=== PATIENT | male | born 1980 | race Caucasian/White ===

== ENCOUNTER 2018-10-18 16:46 | Emergency (ER) | payer OTHER ==
[~2018-10-18] VITALS: Ht 185.4 cm; Wt 73.0 kg
--- NOTE | 2018-10-18 17:17 | NUR ---
ED Nurse Note: Pt came in from home for help with feeling bloating, pt has alcoholism problem, has been eating a lot of "comfort food". HR 111 upon arrival, other VSS. AOx4. Will cont to monitor.
--- NOTE | 2018-10-18 17:18 | NUR ---
ED Nurse Note: Pt admitted he had " a couple of drinks" before coming in the ER.
[2018-10-18] MEDS ORDERED: Isovue-300 100ml vial INJ PRN (17:45)
[2018-10-18 18:43] LABS: BASOPHILS % (AUTO) 1.2 % (0.0-2.0); EOSINOPHILS % (AUTO) 0.2 % (0.0-3.0); HEMATOCRIT 40.6 % (42.0-52.0); HEMOGLOBIN 13.6 G/DL (14.2-18.0); MEAN CORPUSCULAR VOLUME 103 FL (80-99); MONOCYTES % (AUTO) 3.6 % (1.0-10.0); NEUTROPHILS % (AUTO) 81.1 % (45.0-75.0); PLATELET COUNT 188 K/UL (150-450); RED BLOOD COUNT 3.94 M/UL (4.70-6.10); RED CELL DISTRIBUTION WIDTH 11.4 % (11.6-14.8); WHITE BLOOD COUNT 12.1 K/UL (4.8-10.8)
[2018-10-18 19:05] LABS: ANION GAP 9 mmol/L (5-15); BLOOD UREA NITROGEN 1 mg/dL (7-18); CALCIUM 8.5 MG/DL (8.5-10.1); CARBON DIOXIDE 30 MMOL/L (21-32); CHLORIDE 95 MMOL/L (98-107); CREATININE 0.8 MG/DL (0.55-1.30); POTASSIUM 3.9 MMOL/L (3.5-5.1); SODIUM 134 MMOL/L (136-145)
[2018-10-18 19:16] VITALS: BP 132/87
[2018-10-18 19:17] LABS: ALANINE AMINOTRANSFERASE 82 U/L (12-78); ALBUMIN 2.6 G/DL (3.4-5.0); ALBUMIN/GLOBULIN RATIO 0.7 (1.0-2.7); ALKALINE PHOSPHATASE 233 U/L (46-116); ASPARTATE AMINO TRANSFERASE 431 U/L (15-37); BILIRUBIN,TOTAL 3.1 MG/DL (0.2-1.0)
--- NOTE | 2018-10-18 19:17 | NUR ---
ED Nurse Note:pt. went to DT scan
[2018-10-18 19:18] LABS: BILIRUBIN,DIRECT 2.4 MG/DL (0.0-0.3)
[2018-10-18 20:10] LABS: APPEARANCE,URINE CLEAR; BILIRUBIN, URINE NEGATIVE (NEGATIVE); GLUCOSE, URINE (UA) NEGATIVE (NEGATIVE); KETONES,URINE 1+ (NEGATIVE); LEUKOCYTE ESTERASE ,URINE NEGATIVE (NEGATIVE); NITRITE,URINE NEGATIVE (NEGATIVE); PH,URINE 7 (4.5-8.0); PROTEIN,URINE NEGATIVE (NEGATIVE); UROBILINOGEN,URINE 1 MG/DL (0.0-1.0)
[2018-10-18 20:11] LABS: COLOR,URINE YELLOW
[2018-10-18] MEDS ORDERED: cefOXitin Sod 1 GM in D5W 55 ML IVPB ONE (21:30)
--- NOTE | 2018-10-18 21:45 | Emergency Room Report ---
History of Present Illness General Chief Complaint: Pain Source: Patient Present Illness HPI 38-year-old male patient presents ER complaining of abdominal discomfort and swelling for the past 2 weeks. Reports right upper and right lower quadrant pain during this time. Reports intermittent vomiting and diarrhea during this time. Denies hematemesis or blood in stool. Denies recent travel outside the country. Reports history of alcoholism, states that has been drinking for the past day, states last drink was at 3 PM earlier today. Reports history of delirium tremens when detoxing from alcohol use. Denies fever, chest pain, shortness of breath. Denies acute injury or trauma. Denies other aggravating or relieving factors. Reports last bowel movement earlier today, states normal. Reports able to pass flatus. Reports history of intermittent marijuana use, denies other drug use. Allergies: Coded Allergies: PENICILLINS (Verified Allergy, Unknown, 10/18/18) Patient History Past Medical History: see triage record Reviewed Nursing Documentation: PMH: Agreed; PSxH: Agreed Nursing Documentation-PMH Past Medical History: No History, Except For Review of Systems All Other Systems: negative except mentioned in HPI Physical Exam Vital Signs Date Time Temp Pulse Resp B/P (MAP) Pulse Ox O2 Delivery O2 Flow Rate FiO2 10/18/18 17:02 98.8 111 20 132/87 96 Room Air Sp02 EP Interpretation: reviewed, normal General Appearance: well appearing, no apparent distress, alert, GCS 15, non- toxic Head: normocephalic, atraumatic Eyes: bilateral eye normal inspection, bilateral eye PERRL, bilateral eye scleral icterus ENT: hearing grossly normal, normal pharynx, no angioedema, normal voice, uvula midline, moist mucus membranes Neck: full range of motion, no bony tend Respiratory: lungs clear, normal breath sounds, no rhonchi, no respiratory distress, no accessory muscle use, no wheezing, speaking full sentences Cardiovascular #1: regular rate, rhythm, no edema Gastrointestinal: soft, no mass, non-distended, no guarding, no rebound, distended, other - Negative Rovsing, negative obturator Musculoskeletal: back normal, digits/nails normal, gait/station normal, normal range of motion, non-tender Psychiatric: mood/affect normal Skin: no rash Medical Decision Making PA Attestation Dr. Buckley is my supervising Physician whom patient management has been discussed with. Diagnostic Impression: Primary Impression: Cholecystitis Additional Impressions: Ascites History of alcoholism ER Course Pt. presents to the ED c/o abdominal pain and vomiting. Ddx considered but are not limited to UTI, cholelithiasis, cholecystitis, pancreatitis, appendicitis, diverticulitis. Begin abdominal pain workup. Provided patient with pain medication. Vital signs: are WNL, pt. is afebrile ORDERS: CBC, CMP, Lipase, UA, CT abdomen pelvis, and medication. ER COURSE: CBC CMP Lipase UA Discuss results with patient CT abdomen and pelvis Abdominal US Patient reports relief of pain symptoms with medication. - Please note that this Emergency Department Report was dictated using [employer] specialist technology software, occasionally this can lead to erroneous entry secondary to interpretation by the dictation equipment. Labs Test 10/18/18 18:30 10/18/18 19:45 White Blood Count 12.1 K/UL (4.8-10.8) Red Blood Count 3.94 M/UL (4.70-6.10) Hemoglobin 13.6 G/DL (14.2-18.0) Hematocrit 40.6 % (42.0-52.0) Mean Corpuscular Volume 103 FL (80-99) Mean Corpuscular Hemoglobin 34.5 PG (27.0-31.0) Mean Corpuscular Hemoglobin Concent 33.5 G/DL (32.0-36.0) Red Cell Distribution Width 11.4 % (11.6-14.8) Platelet Count 188 K/UL (150-450) Mean Platelet Volume 8.6 FL (6.5-10.1) Neutrophils (%) (Auto) 81.1 % (45.0-75.0) Lymphocytes (%) (Auto) 14.0 % (20.0-45.0) Monocytes (%) (Auto) 3.6 % (1.0-10.0) Eosinophils (%) (Auto) 0.2 % (0.0-3.0) Basophils (%) (Auto) 1.2 % (0.0-2.0) Prothrombin Time 13.7 SEC (9.30-11.50) Prothromb Time International Ratio 1.3 (0.9-1.1) Activated Partial Thromboplast Time 33 SEC (23-33) Sodium Level 134 MMOL/L (136-145) Potassium Level 3.9 MMOL/L (3.5-5.1) Chloride Level 95 MMOL/L (98-107) Carbon Dioxide Level 30 MMOL/L (21-32) Anion Gap 9 mmol/L (5-15) Blood Urea Nitrogen 1 mg/dL (7-18) Creatinine 0.8 MG/DL (0.55-1.30) Estimat Glomerular Filtration Rate > 60 mL/min (>60) Glucose Level 132 MG/DL (74-106) Calcium Level 8.5 MG/DL (8.5-10.1) Total Bilirubin 3.1 MG/DL (0.2-1.0) Direct Bilirubin 2.4 MG/DL (0.0-0.3) Aspartate Amino Transf (AST/SGOT) 431 U/L (15-37) Alanine Aminotransferase (ALT/SGPT) 82 U/L (12-78) Alkaline Phosphatase 233 U/L (46-116) Total Protein 6.5 G/DL (6.4-8.2) Albumin 2.6 G/DL (3.4-5.0) Globulin 3.9 g/dL Albumin/Globulin Ratio 0.7 (1.0-2.7) Lipase 289 U/L (73-393) Urine Color Yellow Urine Appearance Clear Urine pH 7 (4.5-8.0) Urine Specific [place] 1.005 (1.005-1.035) Urine Protein Negative (NEGATIVE) Urine Glucose (UA) Negative (NEGATIVE) Urine Ketones 1+ (NEGATIVE) Urine Blood Negative (NEGATIVE) Urine Nitrite Negative (NEGATIVE) Urine Bilirubin Negative (NEGATIVE) Urine Urobilinogen 1 MG/DL (0.0-1.0) Urine Leukocyte Esterase Negative (NEGATIVE) CT/MRI/US Diagnostic Results CT/MRI/US Diagnostic Results : Imaging Test Ordered: CT abdomen pelvis Impression Trace bilateral pleural effusions. Prominent hepatic steatosis. Hepatomegaly. Mildly distended gallbladder. Excreting contrast in the renal collecting systems. Tiny hypodensities in the kidneys are too small to definitively characterize. No hydronephrosis. Normal appendix. No bowel obstruction. Mild prominence of the jennings of the jejunal small bowel loops may be secondary to under distention versus enteritis versus reactive changes from the ascites. Prominence of the wall of the right colon may be secondary to under distention versus colitis. Moderate ascites. Probable small bone islands in the pelvic bones. Small fat-containing umbilical hernia. Mild edema in the surrounding soft tissues. Last Vital Signs Date Time Temp Pulse Resp B/P (MAP) Pulse Ox O2 Delivery O2 Flow Rate FiO2 10/18/18 19:16 98.8 76 20 132/87 96 Room Air Disposition: ADMITTED INPATIENT Condition: Serious Referrals: NON PHYSICIAN (PCP) Pankaj Echevarria Oct 18, 2018 21:45
--- NOTE | 2018-10-18 21:52 | NUR ---
[facility] - [phone]
[2018-10-18 22:46] LABS: INR 1.3 (0.9-1.1)
[2018-10-18 23:04] VITALS: BP 99/63
--- NOTE | 2018-10-18 23:13 | NUR ---
ED Nurse Note: Gave report to Charge nurse Sheela.
[2018-10-19 00:04] VITALS: BP 99/63
--- NOTE | 2018-10-19 00:04 | NUR ---
ED Nurse Note: Patient being transferred to [facility] via [id number]. Patient AOx4, VSS, ambulatory with steady gait, no s/s of acute distress noted at this time. patient sent with all personal belongings. Patient sent with IV access. Patient report given to charge nurse.
--- NOTE | 2018-10-19 09:43 | Diagnostic Imaging Report ---
Clinical Indication: Abdominal plain and bloating for 7 days Technique: No oral contrast utilized, per emergency room physician request IV administration nonionic contrast. Venous phase spiral acquisition obtained through the abdomen and pelvis. Multiplanar reconstructions were generated. Total dose length product 726 mGycm. CTDIvol(s) 12 mGy. Dose reduction achieved using automated exposure control Comparison: none Findings: The liver is enlarged, diffusely hypoattenuating. The gallbladder is distended, demonstrates mild wall thickening. There is a moderate amount of ascites fluid present. No gallstones. No biliary ductal dilatation. The distal esophagus, stomach, duodenum are unremarkable. The jejunum demonstrates mild wall thickening, no harjinder distention. No evidence of colonic diverticulosis or diverticulitis. The appendix is normal. No free intraperitoneal gas demonstrated. There is a tiny fat-containing umbilical hernia. This appears to be surrounded by a small amount of edema. The pancreas, spleen, adrenals unremarkable. The kidneys demonstrate subcentimeter low-attenuation lesions which are too small to characterize bilaterally. No renal or ureteral calculi, hydronephrosis, or hydroureter. The bladder is distended, otherwise unremarkable. Prostate is somewhat prominent for age. The included lung bases demonstrate trace pleural fluid bilaterally, right greater than left. The bones are unremarkable. Impression: Ascites Enlarged fatty liver Somewhat distended gallbladder, without evidence of gallstones. Mild gallbladder wall thickening is probably on the basis of hepatocellular disease. However, there is high clinical suspicion for acute cholecystitis, hepatobiliary nuclear scan should be considered. Nonspecific mild wall thickening of the proximal jejunum. Enteritis possible. Correlate with clinical findings Trace bilateral pleural effusions, right greater than left Small fat-containing umbilical hernia with mild edema surrounding it This agrees with the preliminary interpretation provided overnight by [facility] teleradiology service. The CT scanner at [facility] is accredited by the [employer] and the scans are performed using protocols designed to limit radiation exposure to as low as reasonably achievable to attain images of sufficient resolution adequate for diagnostic evaluation.
--- NOTE | 2018-10-19 11:37 | Diagnostic Imaging Report ---
Indication: Abnormal liver function tests, abdominal distention Technique: Patel-scale and duplex images of the upper abdomen were obtained. Doppler interrogation of the pancreatic and hepatic vessels Comparison: none Findings: There is a moderate amount of ascites fluid present. Gallbladder is filled with sludge. The gallbladder wall is thickened, measuring 6 mm thick. No pericholecystic fluid. Sonographic Stephenson's sign is negative. Common bile duct measures 5 mm in diameter. No intrahepatic biliary ductal dilatation. Liver demonstrates increased echogenicity, consistent with hepatocellular disease. Portal vein and hepatic veins are patent. Pancreas is obscured by bowel gas. Spleen is unremarkable. Left kidney measures 11 point cm in length. Right kidney measures 11.4 cm length. Both kidneys demonstrate normal echogenicity. There is no hydronephrosis. No focal abnormality . Abdominal aorta is obscured by bowel gas . Impression: Limited exam, resultant nonvisualization of the abdominal aorta and pancreas Liver demonstrates diffusely increased echogenicity, consistent with diffuse hepatocellular disease, most likely fatty change. Ascites Gallbladder sludge. Negative for gallstones. Gallbladder wall thickening is most likely related to the hepatocellular derangements causing the ascites. However, the possibility of acute acalculous cholecystitis should also be considered. Consider hepatobiliary nuclear scan for further evaluation if there is high clinical suspicion Negative for dilated bile ducts
== END 2018-10-19 00:04 | disposition other institution (70) ==
LOC: EMR 17:46
DX: K81.9 Cholecystitis, unspecified (principal); K76.0 Fatty (change of) liver, not elsewhere classified; R18.8 Other ascites; K42.9 Umbilical hernia without obstruction or gangrene; F10.21 Alcohol dependence, in remission; Z88.0 Allergy status to penicillin
CPT/HCPCS: 36415; 74177; 76700; 80053; 81003; 82248; 83690; 85025; 85610; 85730; 96365; 99284; J0694; Q9967

== ENCOUNTER 2020-03-24 11:12 | Emergency (ER) | payer OTHER ==
[~2020-03-24] VITALS: Ht 177.8 cm; Wt 68.0 kg
--- NOTE | 2020-03-24 11:15 | NUR ---
ED Nurse Note: Pt brought in by ambulance from [facility] d/t right wrist pain that started today. Denies injury. Pt is in [employer] custody and here for medical clearance. Per EMS, pt was spitting into police officers eyes. Covid swab ordered. Respirations even and unlabored on room air. Vitals stable as documented. Pt is A+Ox4, but speaking quickly, having flight of ideas. Thinking is disorganized. Law enforcement @ bedside.
--- NOTE | 2020-03-24 11:30 | NUR ---
ED Nurse Note: COVID SWAB sent to lab
--- NOTE | 2020-03-24 11:37 | Emergency Room Report ---
History of Present Illness General Chief Complaint: Medical Clearance Source: EMS Present Illness HPI Disclaimer: Please note that this report is being documented using [employer] technology. This can lead to erroneous entry secondary to incorrect interpretation by the dictating instrument. HPI: 39-year-old male presents to the ER for medical clearance. He complains of right wrist pain. He is currently in custody. He denies any medical history. He denies any fever or coughing. No shortness of breath. Pain in the wrist is 3 out of 10 worse with palpation and nonradiating. Past medical history-denies any past medical history PSH: Reviewed Social Hx: Patient smokes cigarettes drinks alcohol denies illicit drug use Allergies: Coded Allergies: DIPHENHYDRAMINE (Unverified Allergy, Unknown, 03/24/20) PENICILLINS (Verified Allergy, Unknown, 10/18/18) COVID-19 Screening Contact w/high risk pt: No Experienced COVID-19 symptoms?: No COVID-19 Testing performed SCHOOL [employer]ITOR: No Patient History Reviewed Nursing Documentation: PMH: Agreed; PSxH: Agreed Nursing Documentation-PMH Past Medical History: No Stated History Review of Systems All Other Systems: negative except mentioned in HPI Physical Exam Vital Signs Date Time Temp Pulse Resp B/P (MAP) Pulse Ox O2 Delivery O2 Flow Rate FiO2 03/24/20 11:08 91 98 Room Air Sp02 EP Interpretation: reviewed, normal General Appearance: well appearing, no apparent distress Head: normocephalic, atraumatic Eyes: bilateral eye PERRL, bilateral eye EOMI ENT: hearing grossly normal, moist mucus membranes Neck: full range of motion, supple Respiratory: lungs clear, normal breath sounds, no rhonchi, no respiratory distress, no retraction, no wheezing Cardiovascular #1: normal peripheral pulses, regular rate, rhythm, no murmur Gastrointestinal: non tender, soft, non-distended, no guarding Musculoskeletal: other - Right wrist mildly tender no deformity 2+ pulses sensation intact Neurologic: alert, oriented x3, no focal defects Skin: normal color, warm/dry Medical Decision Making Diagnostic Impression: Primary Impression: Encounter for medical clearance for patient hold Additional Impression: Right wrist sprain ER Course Patient presented for medical clearance. He complained of right wrist pain. Differential included but not limited to sprain versus fracture less likely dislocation. Exam showed mild tenderness. X-ray of the wrist ordered. X-ray did not demonstrate any evidence of fracture or dislocation. Coronavirus testing was sent on the patient and and was negative. Patient stable for discharge in custody. Other X-Ray Diagnostic Results Other X-Ray Diagnostic Results : X-Ray ordered: Right wrist # of Views/Limited Vs Complete: 3 View Indication: Pain Interpretation: no dislocation, no fractures Impression: No acute disease Electronically Signed by: Marc Stack MD Last Vital Signs Date Time Temp Pulse Resp B/P (MAP) Pulse Ox O2 Delivery O2 Flow Rate FiO2 03/24/20 11:08 91 98 Room Air Disposition: LAW ENFORCEMENT IN CUST Condition: Stable Marc Stack M.D. Mar 24, 2020 11:37
[2020-03-24 12:18] VITALS: BP 136/85
--- NOTE | 2020-03-24 12:18 | NUR ---
ED Nurse Note: Pt cleared by health care Provider for discharge. DC instructions were given and explained to pt and law enforcement. They verbalized understanding of teachings. All medical deviecs such as ID band removed. Pt is AAO x4, ambulatory and left with all personal belongings. Pt escourted out with [employer]
--- NOTE | 2020-03-24 15:58 | Diagnostic Imaging Report ---
Indication: Wrist pain Technique: XRAY Wrist Complete R Comparison: None Findings: Bone mineralization within normal limits. No acute fracture or dislocation is identified. There is no radiopaque foreign body. No discrete soft tissue defect is appreciated radiographically. Correlation with physical exam is recommended as clinically indicated. Impression: No acute fracture or dislocation.
== END 2020-03-24 12:18 ==
LOC: EDBD 11:12 → EMR 11:45
DX: S63.501A Unspecified sprain of right wrist, initial encounter (principal); Z88.0 Allergy status to penicillin; F17.210 Nicotine dependence, cigarettes, uncomplicated; X58.XXXA Exposure to other specified factors, initial encounter; Y92.9 Unspecified place or not applicable
CPT/HCPCS: 73110; 99283; U0002